=== PATIENT | female | born 1945 | race Caucasian/White ===

== ENCOUNTER 2016-11-08 17:22 | Emergency (ER) | payer MEDICARE, BC ==
[~2016-11-08] VITALS: Ht 154.9 cm; Wt 82.7 kg
[~2016-11-08 17:22] MED LIST: ACETAMINOPHEN W1 TA6 PO; ASPI325T6 PO; ATENOLOL; BLOOD PRESSURE PILL; MAXALT MLT10 MG/TAB PO; TENORMIN 2525 MG/TAB PO
[2016-11-08 17:23] VITALS: TEMP 98
[2016-11-08] MEDS ORDERED: BETAMETHASONE VA0.1% TP (17:40)
[2016-11-08] MEDS ORDERED: ALDACTONE50 MG PO (17:40)
[2016-11-08 18:05] LABS: BASO # 0.1 (0.0-0.2); BASO % 0.9 % (0.0-2.0); EOS # 0.6 (0.0-0.7); EOS % 6.5 % (0-4.0); GRAN % 62.1 % (42.2-75.2); HEMATOCRIT 39.2 % (37.0-47.0); LYMPH # 2.1 (1.2-3.4); LYMPH % 21.6 % (20.0-51.0); MEAN CELL VOLUME 89 fl (80.0-100.0); MEAN CORPUSCULAR HEMOGLOBIN 30 pg (27.0-31.0); MEAN CORPUSCULAR HGB CONC 33 g/dl (33.0-37.0); MEAN PLATELET VOLUME 10.3 fl (7.4-10.4); MONO # 0.8 (0.1-0.6); MONO % 8.4 % (1.7-9.3); PLATELET COUNT 206 K/mm3 (130-400); RED BLOOD COUNT 4.41 M/mm3 (4.10-5.30); REDCELL DISTRIBUTION WIDTH-CV 12.5 % (11.5-14.5); WHITE BLOOD COUNT 9.6 K/mm3 (4.8-10.8)
[2016-11-08 18:16] LABS: ADJUSTED CALCIUM 9.2 mg/dL (8.4-10.2); ALBUMIN 3.7 gm/dL (3.5-5.0); BILIRUBIN,TOTAL 0.5 mg/dL (0.0-1.0); CREATININE, serum 0.74 mg/dL (0.52-1.25); POTASSIUM 4.3 mmol/L (3.4-5.0); TOTAL PROTEIN 7.2 gm/dL (6.4-8.2)
[2016-11-08 18:29] LABS: PH 6 (5-8); URINE APPEARANCE Hazy; URINE BACTERIA Rare /hpf; URINE BILIRUBIN Negative (NEGATIVE); URINE BLOOD Negative (NEGATIVE); URINE COLOR Yellow; URINE GLUCOSE Negative (NEGATIVE); URINE KETONE Negative (NEGATIVE); URINE RBC 0-2 /hpf; URINE UROBILINOGEN Negative (NEGATIVE)
[2016-11-08] MEDS ORDERED: LASIX 20MG TABL20 MG PO (18:38)
[2016-11-08 19:14] VITALS: BP 147/82; PULSE 80
== END 2016-11-08 19:02 | disposition home or self-care (01) ==
LOC: COL.ER 17:22
PROVIDERS: Emergency Medicine
DX: I87.2 Venous insufficiency (chronic) (peripheral) (principal); I10 Essential (primary) hypertension; R73.9 Hyperglycemia, unspecified; R60.0 Localized edema
CPT/HCPCS: J1940

== ENCOUNTER 2018-08-16 13:53 | Emergency (ER) | payer MEDICARE, BC ==
[~2018-08-16] VITALS: Ht 154.9 cm; Wt 81.8 kg
[~2018-08-16 13:53] MED LIST changes: +ALDACTONE50 MG PO; +BETAMETHASONE VA0.1% TP; +LASIX 20MG TABL20 MG PO
[2018-08-16 13:59] VITALS: TEMP 97.6
[2018-08-16 15:38] VITALS: BP 139/67; PULSE 57
== END 2018-08-16 15:52 | disposition home or self-care (01) ==
LOC: COL.ER 13:53
DX: S61.012A Laceration without foreign body of left thumb without damage to nail, initial encounter (principal); I10 Essential (primary) hypertension; Z23 Encounter for immunization; Z98.51 Tubal ligation status; Z90.710 Acquired absence of both cervix and uterus; Z79.82 Long term (current) use of aspirin; W26.0XXA Contact with knife, initial encounter; Y92.009 Unspecified place in unspecified non-institutional (private) residence as the place of occurrence of the external cause

== ENCOUNTER 2018-08-23 11:41 | Emergency (ER) | payer MEDICARE, BC ==
[2018-08-23 11:59] VITALS: BP 158/76; PULSE 77; TEMP 97.6
== END 2018-08-23 12:13 | disposition home or self-care (01) ==
LOC: COL.ER 11:41
DX: S61.412D Laceration without foreign body of left hand, subsequent encounter (principal); X58.XXXD Exposure to other specified factors, subsequent encounter

== ENCOUNTER 2022-02-26 14:57 | Emergency (ER) | payer MEDICARE, BC ==
[~2022-02-26] VITALS: Ht 162.6 cm; Wt 81.8 kg
[2022-02-26 15:05] VITALS: TEMP 98.3
[2022-02-26 17:30] VITALS: BP 192/83; PULSE 60
== END 2022-02-26 17:30 | disposition home or self-care (01) ==
LOC: COL.ER 14:57
DX: M25.551 Pain in right hip (principal); Z87.891 Personal history of nicotine dependence; Z88.5 Allergy status to narcotic agent; Z88.6 Allergy status to analgesic agent